=== PATIENT | female | born 2000 | race Caucasian/White ===

== ENCOUNTER 2018-05-13 12:53 | Emergency (ER) | payer OTHER ==
[~2018-05-13] VITALS: Ht 154.9 cm; Wt 80.7 kg
[~2018-05-13 12:53] MED LIST: BACTRIM DS TAB1 EACH PO; CIPRO500 MG PO; IBUPROFEN 800800 M1 PO; MOBIC7.5 MG PO; PHENAZOPYRIDIN200 M2 PO; ROBAXIN 750 MG750 M1 PO
[2018-05-13 13:39] LABS: URINE BILIRUBIN NEGATIVE (Negative); URINE BLOOD TRACE (Negative); URINE CLARITY CLEAR; URINE COLOR YELLOW; URINE GLUCOSE-RANDOM NEGATIVE (Negative); URINE KETONES NEGATIVE (Negative); URINE LEUKOCYTES-REFLEX 1+ (Negative); URINE NITRITE-REFLEX NEGATIVE (Negative); URINE PROTEIN NEGATIVE (Negative); URINE SPECIFIC GRAVITY >= 1.030 (1.005-1.030); URINE UROBILINOGEN 0.2 E.U./dl (0.2-1.0)
[2018-05-13 13:46] LABS: SQUAMOUS >10 Many /LPF (0-3)
[2018-05-13 13:47] LABS: BACTERIA-REFLEX >30 Many /HPF (None Seen); CASTS None Seen /LPF (None Seen); CRYSTALS None Seen /LPF (None Seen); MUCUS 0-3 Light strn/LPF (None Seen); URINE RBC None Seen /HPF (0-2)
[2018-05-13] MEDS ORDERED: MACROBID 100 M100 M1 PO (14:07)
[2018-05-13] MEDS ORDERED: DIFLUCAN150 M1 PO (14:16)
[2018-05-13] MEDS ORDERED: ZOFRAN ODT4 MG PO (14:16)
[2018-05-13 14:20] VITALS: BP 132/73
== END 2018-05-13 14:21 | disposition home or self-care (01) ==
LOC: M.ERS 12:53
PROVIDERS: Nurse Practitioner Family
DX: N39.0 Urinary tract infection, site not specified (principal); F17.210 Nicotine dependence, cigarettes, uncomplicated

== ENCOUNTER 2019-01-01 08:00 | Emergency (ER) | payer OTHER ==
[~2019-01-01] VITALS: Ht 157.5 cm; Wt 86.2 kg
[~2019-01-01 08:00] MED LIST changes: +DIFLUCAN150 M1 PO; +MACROBID 100 M100 M1 PO; +ZOFRAN ODT4 MG PO
[2019-01-01 09:10] VITALS: BP 135/78
== END 2019-01-01 09:10 | disposition home or self-care (01) ==
LOC: M.ERS 08:00
DX: J06.9 Acute upper respiratory infection, unspecified (principal); L30.9 Dermatitis, unspecified

== ENCOUNTER 2019-01-24 20:36 | Emergency (ER) | payer OTHER ==
[~2019-01-24] VITALS: Ht 157.5 cm; Wt 86.2 kg
[2019-01-24] MEDS ORDERED: NORCO 5-325 TA1 EAC1 PO (21:23)
[2019-01-24] MEDS ORDERED: IBUPROFEN 800800 M1 PO (21:23)
[2019-01-24] MEDS ORDERED: AMOXICILLIN 50500 MG PO (21:23)
[2019-01-24 21:39] VITALS: BP 140/72
[2019-01-28] MEDS ORDERED: CIPROFLOXIN HC2.5 M1 OTIC (13:34)
[2019-01-28] MEDS ORDERED: ACETAMINOPHEN-1 EAC1 PO (13:35)
== END 2019-01-24 21:39 | disposition home or self-care (01) ==
LOC: M.ERS 20:36
DX: H60.91 Unspecified otitis externa, right ear (principal)

== ENCOUNTER 2019-01-28 13:22 | Emergency (ER) | payer OTHER | END 2019-01-28 13:44 | disposition home or self-care (01) | LOC: M.ERS 13:22 | DX: H60.93 Unspecified otitis externa, bilateral (principal) ==

== ENCOUNTER 2019-03-19 15:38 | Emergency (ER) | payer OTHER ==
[~2019-03-19] VITALS: Ht 157.5 cm; Wt 86.2 kg
[~2019-03-19 15:38] MED LIST changes: +ACETAMINOPHEN-1 EAC1 PO; +AMOXICILLIN 50500 MG PO; +CIPROFLOXIN HC2.5 M1 OTIC; +NORCO 5-325 TA1 EAC1 PO
[2019-03-19 15:54] LABS: URINE BILIRUBIN NEGATIVE (Negative); URINE BLOOD 3+ (Negative); URINE CLARITY SL CLOUDY; URINE COLOR YELLOW; URINE GLUCOSE-RANDOM NEGATIVE (Negative); URINE KETONES NEGATIVE (Negative); URINE LEUKOCYTES-REFLEX NEGATIVE (Negative); URINE NITRITE-REFLEX NEGATIVE (Negative); URINE PROTEIN 3+ (Negative); URINE UROBILINOGEN 0.2 E.U./dl (0.2-1.0)
[2019-03-19 16:01] LABS: SQUAMOUS 0-3 Few /LPF (0-3); URINE RBC >20 Many /HPF (0-2); URINE WBC-REFLEX 0-5 Rare /HPF (0-5)
[2019-03-19 16:02] LABS: CASTS None Seen /LPF (None Seen); CRYSTALS None Seen /LPF (None Seen); MUCUS None Seen strn/LPF (None Seen)
[2019-03-19] MEDS ORDERED: DIFLUCAN200 MG PO (16:14)
[2019-03-19] MEDS ORDERED: BACTRIM DS TAB1 EACH PO (16:14)
[2019-03-19 16:22] VITALS: BP 130/82
== END 2019-03-19 16:23 | disposition home or self-care (01) ==
LOC: M.ERS 15:38
PROVIDERS: Family Medicine
DX: R30.0 Dysuria (principal); N39.0 Urinary tract infection, site not specified; F17.210 Nicotine dependence, cigarettes, uncomplicated

== ENCOUNTER 2019-06-28 15:45 | Emergency (ER) | payer OTHER ==
[~2019-06-28] VITALS: Ht 157.5 cm; Wt 81.7 kg
[~2019-06-28 15:45] MED LIST changes: +DIFLUCAN200 MG PO
[2019-06-28 16:01] LABS: URINE BILIRUBIN NEGATIVE (Negative); URINE BLOOD 1+ (Negative); URINE CLARITY CLEAR; URINE COLOR YELLOW; URINE GLUCOSE-RANDOM NEGATIVE (Negative); URINE KETONES NEGATIVE (Negative); URINE LEUKOCYTES-REFLEX NEGATIVE (Negative); URINE NITRITE-REFLEX POSITIVE (Negative); URINE PROTEIN NEGATIVE (Negative); URINE SPECIFIC GRAVITY 1.025 (1.005-1.030); URINE UROBILINOGEN 0.2 E.U./dl (0.2-1.0)
[2019-06-28 16:11] LABS: SQUAMOUS >10 Many /LPF (0-3)
[2019-06-28 16:12] LABS: URINE WBC-REFLEX 6-15 Few /HPF (0-5)
[2019-06-28 16:13] LABS: BACTERIA-REFLEX >30 Many /HPF (None Seen); CASTS None Seen /LPF (None Seen); CRYSTALS None Seen /LPF (None Seen); MUCUS >6 Heavy strn/LPF (None Seen); URINE RBC 3-10 Few /HPF (0-2)
[2019-06-28] MEDS ORDERED: KEFLEX500 M1 PO (16:20)
[2019-06-28] MEDS ORDERED: DIFLUCAN150 M1 PO (16:20)
[2019-06-28] MEDS ORDERED: PYRIDIUM100 M1 PO (16:20)
[2019-06-28] MEDS ORDERED: ONDANSETRON HCL4 M2 PO (16:30)
[2019-06-28 16:36] VITALS: BP 125/80
== END 2019-06-28 17:40 | disposition home or self-care (01) ==
LOC: M.ERS 15:45
PROVIDERS: Physician Assistant
DX: N39.0 Urinary tract infection, site not specified (principal)

== ENCOUNTER 2019-08-07 13:58 | Emergency (ER) | payer OTHER ==
[~2019-08-07] VITALS: Ht 160 cm; Wt 86.2 kg
[~2019-08-07 13:58] MED LIST changes: +KEFLEX500 M1 PO; +ONDANSETRON HCL4 M2 PO; +PYRIDIUM100 M1 PO
[2019-08-07] MEDS ORDERED: PEPTO-BISMOL262 M1 PO (14:11)
[2019-08-07] MEDS ORDERED: NON-ASPIRIN325 MG PO (14:12)
[2019-08-07 14:30] LABS: URINE BILIRUBIN NEGATIVE (Negative); URINE BLOOD TRACE (Negative); URINE CLARITY CLEAR; URINE COLOR YELLOW; URINE GLUCOSE-RANDOM NEGATIVE (Negative); URINE KETONES NEGATIVE (Negative); URINE LEUKOCYTES-REFLEX NEGATIVE (Negative); URINE NITRITE-REFLEX NEGATIVE (Negative); URINE PROTEIN NEGATIVE (Negative); URINE SPECIFIC GRAVITY 1.015 (1.005-1.030); URINE UROBILINOGEN 0.2 E.U./dl (0.2-1.0)
[2019-08-07 14:45] LABS: ABSOLUTE BASOPHILS 0.1 thou/uL (0.0-0.2); ABSOLUTE EOSINOPHILS 0.2 thou/uL (0.0-0.7); ABSOLUTE LYMPHOCYTES 2.3 thou/uL (0.8-5.3); ABSOLUTE MONOCYTES 0.7 thou/uL (0.0-1.2); BASOPHILS 0.6 %; EOSINOPHILS 2.4 %; HEMATOCRIT 42.3 % (37.0-47.0); HEMOGLOBIN 14.4 gm/dL (12.0-15.0); MCH 29.2 pg (26.0-34.0); MCHC 33.9 g/dL (28.0-37.0); MCV 86.1 fL (80.0-100.0); MPV 8.4 fl. (7.2-11.1); NUCLEATED RBCS 0 /100WBC; PLATELET COUNT* 422 thou/uL (150-400); RBC 4.92 mil/uL (4.20-5.00); RDW-CV 13.4 % (10.5-14.5); WBC 8.2 thou/uL (4.0-11.0)
[2019-08-07 14:56] LABS: CALCIUM 9.2 mg/dL (8.5-10.1); CREATININE 0.9 mg/dL (0.6-1.3); POTASSIUM 3.9 mmol/L (3.5-5.1)
[2019-08-07 14:58] LABS: INFLUENZA A ANTIGEN Negative (Negative); INFLUENZA B ANTIGEN Negative (Negative)
[2019-08-07 15:06] LABS: ALBUMIN 3.9 g/dL (3.4-5.0); TOTAL BILIRUBIN 0.3 mg/dL (<0.1-1.0); TOTAL PROTEIN 8.9 g/dL (6.4-8.2)
[2019-08-07] MEDS ORDERED: BENTYL 20 MG TA20 M1 PO (15:06)
[2019-08-07] MEDS ORDERED: ONDANSETRON HCL4 M2 PO (15:06)
[2019-08-07 16:18] VITALS: BP 136/85
== END 2019-08-07 16:18 | disposition home or self-care (01) ==
LOC: M.ERS 13:58
PROVIDERS: Nurse Practitioner Family
DX: K52.9 Noninfective gastroenteritis and colitis, unspecified (principal); I10 Essential (primary) hypertension; F17.200 Nicotine dependence, unspecified, uncomplicated

== ENCOUNTER 2019-08-11 01:21 | Emergency (ER) | payer OTHER ==
[~2019-08-11] VITALS: Ht 160 cm; Wt 86.2 kg
[~2019-08-11 01:21] MED LIST changes: +BENTYL 20 MG TA20 M1 PO; +NON-ASPIRIN325 MG PO; +PEPTO-BISMOL262 M1 PO
[2019-08-11 03:15] LABS: ABSOLUTE BASOPHILS 0.1 thou/uL (0.0-0.2); ABSOLUTE EOSINOPHILS 0.2 thou/uL (0.0-0.7); ABSOLUTE LYMPHOCYTES 3.2 thou/uL (0.8-5.3); ABSOLUTE MONOCYTES 0.9 thou/uL (0.0-1.2); ABSOLUTE NEUTROPHILS 9.2 thou/uL (1.6-8.1); BASOPHILS 0.7 %; EOSINOPHILS 1.2 %; HEMATOCRIT 37.6 % (37.0-47.0); HEMOGLOBIN 12.6 gm/dL (12.0-15.0); LYMPHOCYTES 23.9 %; MCH 28.7 pg (26.0-34.0); MCHC 33.5 g/dL (28.0-37.0); MCV 85.8 fL (80.0-100.0); MONOCYTES 6.4 %; MPV 8.7 fl. (7.2-11.1); NUCLEATED RBCS 0 /100WBC; PLATELET COUNT* 412 thou/uL (150-400); POLYS 67.8 %; RBC 4.39 mil/uL (4.20-5.00); RDW-CV 13.7 % (10.5-14.5); WBC 13.6 thou/uL (4.0-11.0)
[2019-08-11 03:34] LABS: ALBUMIN 3.8 g/dL (3.4-5.0); CALCIUM 8.5 mg/dL (8.5-10.1); CREATININE 0.8 mg/dL (0.6-1.3); TOTAL BILIRUBIN 0.3 mg/dL (<0.1-1.0); TOTAL PROTEIN 8.2 g/dL (6.4-8.2)
[2019-08-11 03:45] LABS: URINE BILIRUBIN NEGATIVE (Negative); URINE BLOOD TRACE (Negative); URINE CLARITY CLEAR; URINE COLOR YELLOW; URINE GLUCOSE-RANDOM NEGATIVE (Negative); URINE KETONES NEGATIVE (Negative); URINE LEUKOCYTES-REFLEX NEGATIVE (Negative); URINE NITRITE-REFLEX NEGATIVE (Negative); URINE PROTEIN NEGATIVE (Negative); URINE SPECIFIC GRAVITY >= 1.030 (1.005-1.030); URINE UROBILINOGEN 0.2 E.U./dl (0.2-1.0)
[2019-08-11 04:05] LABS: POTASSIUM 3.3 mmol/L (3.5-5.1)
[2019-08-11] MEDS ORDERED: CIPROFLOXACIN500 M1 PO (05:19)
[2019-08-11] MEDS ORDERED: HYDROCODON-ACE1 EAC7 PO (05:19)
[2019-08-11] MEDS ORDERED: FLAGYL 250 MG250 MG PO (05:19)
[2019-08-11 05:33] VITALS: BP 140/73
== END 2019-08-11 05:33 | disposition home or self-care (01) ==
LOC: M.ERS 01:21
PROVIDERS: Personal Emergency Response Attendant
DX: K52.9 Noninfective gastroenteritis and colitis, unspecified (principal); I10 Essential (primary) hypertension; Z87.440 Personal history of urinary (tract) infections

== ENCOUNTER 2019-11-14 18:45 | Emergency (ER) | payer OTHER ==
[~2019-11-14] VITALS: Ht 157.5 cm; Wt 90.7 kg
[~2019-11-14 18:45] MED LIST changes: +CIPROFLOXACIN500 M1 PO; +FLAGYL 250 MG250 MG PO; +HYDROCODON-ACE1 EAC7 PO
[2019-11-14] MEDS ORDERED: IBUPROFEN 800800 M1 PO (18:57)
[2019-11-14 19:35] LABS: URINE BILIRUBIN NEGATIVE (Negative); URINE BLOOD NEGATIVE (Negative); URINE CLARITY SL CLOUDY; URINE COLOR YELLOW; URINE GLUCOSE-RANDOM NEGATIVE (Negative); URINE KETONES NEGATIVE (Negative); URINE LEUKOCYTES-REFLEX TRACE (Negative); URINE PROTEIN NEGATIVE (Negative); URINE SPECIFIC GRAVITY 1.025 (1.005-1.030); URINE UROBILINOGEN 0.2 E.U./dl (0.2-1.0)
[2019-11-14 19:37] LABS: ABSOLUTE BASOPHILS 0.1 thou/uL (0.0-0.2); ABSOLUTE EOSINOPHILS 0.3 thou/uL (0.0-0.7); ABSOLUTE LYMPHOCYTES 2.3 thou/uL (0.8-5.3); ABSOLUTE MONOCYTES 0.6 thou/uL (0.0-1.2); ABSOLUTE NEUTROPHILS 5.2 thou/uL (1.6-8.1); BASOPHILS 1.1 %; EOSINOPHILS 3.5 %; LYMPHOCYTES 27.2 %; MCH 29.2 pg (26.0-34.0); MCHC 33.3 g/dL (28.0-37.0); MCV 87.7 fL (80.0-100.0); MONOCYTES 6.9 %; MPV 8.4 fl. (7.2-11.1); NUCLEATED RBCS 0 /100WBC; PLATELET COUNT* 415 thou/uL (150-400); POLYS 61.3 %; RBC 4.45 mil/uL (4.20-5.00); RDW-CV 13.5 % (10.5-14.5); WBC 8.5 thou/uL (4.0-11.0)
[2019-11-14 19:43] LABS: URINE NITRITE-REFLEX POSITIVE (Negative)
[2019-11-14 19:44] LABS: CALCIUM 8.7 mg/dL (8.5-10.1); CREATININE 0.9 mg/dL (0.6-1.3); POTASSIUM 3.8 mmol/L (3.5-5.1)
[2019-11-14 19:49] LABS: ALBUMIN 3.6 g/dL (3.4-5.0); TOTAL BILIRUBIN 0.1 mg/dL (<0.1-1.0); TOTAL PROTEIN 7.8 g/dL (6.4-8.2)
[2019-11-14 19:51] LABS: BACTERIA-REFLEX >30 Many /HPF (None Seen); CASTS None Seen /LPF (None Seen); CRYSTALS None Seen /LPF (None Seen); SQUAMOUS >10 Many /LPF (0-3); URINE RBC 0-2 Rare /HPF (0-2)
[2019-11-14] MEDS ORDERED: ONDANSETRON HCL4 M2 PO (20:35)
[2019-11-14] MEDS ORDERED: AUGMENTIN 875-1 EACH PO (20:35)
[2019-11-14] MEDS ORDERED: BENTYL 20 MG TA20 M1 PO (20:35)
[2019-11-14] MEDS ORDERED: DIFLUCAN150 M1 PO (20:44)
[2019-11-14 20:47] VITALS: BP 132/72
== END 2019-11-14 20:48 | disposition home or self-care (01) ==
LOC: M.ERS 18:45
PROVIDERS: Nurse Practitioner Family
DX: K52.9 Noninfective gastroenteritis and colitis, unspecified (principal); N39.0 Urinary tract infection, site not specified; I10 Essential (primary) hypertension; F17.210 Nicotine dependence, cigarettes, uncomplicated; Z87.440 Personal history of urinary (tract) infections; Z87.898 Personal history of other specified conditions

== ENCOUNTER 2020-01-22 12:20 | Emergency (ER) | payer OTHER ==
[~2020-01-22] VITALS: Ht 157.5 cm; Wt 86.2 kg
[~2020-01-22 12:20] MED LIST changes: +AUGMENTIN 875-1 EACH PO
[2020-01-22 12:56] LABS: URINE BILIRUBIN NEGATIVE (Negative); URINE BLOOD 2+ (Negative); URINE CLARITY CLEAR; URINE COLOR YELLOW; URINE GLUCOSE-RANDOM NEGATIVE (Negative); URINE KETONES 1+ (Negative); URINE LEUKOCYTES-REFLEX NEGATIVE (Negative); URINE NITRITE-REFLEX NEGATIVE (Negative); URINE PROTEIN NEGATIVE (Negative); URINE SPECIFIC GRAVITY >= 1.030 (1.005-1.030); URINE UROBILINOGEN 0.2 E.U./dl (0.2-1.0)
[2020-01-22 13:06] LABS: CASTS None Seen /LPF (None Seen); CRYSTALS None Seen /LPF (None Seen); MUCUS 4-6 Moderate strn/LPF (None Seen); SQUAMOUS 4-10 Moderate /LPF (0-3); URINE RBC 3-10 Few /HPF (0-2); URINE WBC-REFLEX 0-5 Rare /HPF (0-5)
[2020-01-22] MEDS ORDERED: PYRIDIUM100 M1 PO (14:07)
[2020-01-22] MEDS ORDERED: TYLENOL WITH CO1 TA1 PO (14:07)
[2020-01-22] MEDS ORDERED: MACROBID 100 M100 MG PO (14:07)
[2020-01-22 14:48] VITALS: BP 133/83
== END 2020-01-22 14:48 | disposition home or self-care (01) ==
LOC: M.ERS 12:20
PROVIDERS: Physician Assistant
DX: R31.9 Hematuria, unspecified (principal); R30.0 Dysuria; R35.0 Frequency of micturition; I10 Essential (primary) hypertension; F17.210 Nicotine dependence, cigarettes, uncomplicated; Z87.440 Personal history of urinary (tract) infections

== ENCOUNTER 2020-01-23 19:18 | Emergency (ER) | payer OTHER ==
[~2020-01-23] VITALS: Ht 160 cm; Wt 88.5 kg
[~2020-01-23 19:18] MED LIST changes: +MACROBID 100 M100 MG PO; +TYLENOL WITH CO1 TA1 PO
[2020-01-23 20:48] VITALS: BP 136/74
[2020-01-24] MEDS ORDERED: HYDROXYZINE PAM25 M1 PO (15:49)
[2020-01-24] MEDS ORDERED: PROPRANOLOL 1010 M1 PO (15:49)
== END 2020-01-23 20:49 | disposition home or self-care (01) ==
LOC: M.ERS 19:18
DX: F41.9 Anxiety disorder, unspecified (principal); I10 Essential (primary) hypertension; Z87.440 Personal history of urinary (tract) infections

== ENCOUNTER 2020-01-24 14:12 | Emergency (ER) | payer OTHER ==
[~2020-01-24] VITALS: Ht 160 cm; Wt 88.5 kg
[2020-01-24 15:09] LABS: URINE BILIRUBIN NEGATIVE (Negative); URINE BLOOD 1+ (Negative); URINE CLARITY SL CLOUDY; URINE COLOR YELLOW; URINE GLUCOSE-RANDOM NEGATIVE (Negative); URINE KETONES NEGATIVE (Negative); URINE LEUKOCYTES-REFLEX TRACE (Negative); URINE NITRITE-REFLEX NEGATIVE (Negative); URINE PROTEIN NEGATIVE (Negative); URINE UROBILINOGEN 0.2 E.U./dl (0.2-1.0)
[2020-01-24 15:16] LABS: AMP/METHAMP Negative (Negative); BACTERIA-REFLEX >30 Many /HPF (None Seen); BARBITURATES Negative (Negative); BENZODIAZEPINES POSITIVE (Negative); CASTS None Seen /LPF (None Seen); COCAINE Negative (Negative); CRYSTALS None Seen /LPF (None Seen); METHADONE Negative (Negative); MUCUS 4-6 Moderate strn/LPF (None Seen); OPIATES POSITIVE (Negative); PCP Negative (Negative); SQUAMOUS >10 Many /LPF (0-3); THC POSITIVE (Negative); URINE RBC 0-2 Rare /HPF (0-2); URINE WBC-REFLEX 0-5 Rare /HPF (0-5)
[2020-01-24 15:16] LABS: ABSOLUTE LYMPHOCYTES 1.2 thou/uL (0.8-5.3); ABSOLUTE MONOCYTES 0.6 thou/uL (0.0-1.2); ABSOLUTE NEUTROPHILS 9.7 thou/uL (1.6-8.1); BASOPHILS 0.4 %; EOSINOPHILS 0.2 %; HEMATOCRIT 39.6 % (37.0-47.0); HEMOGLOBIN 13.3 gm/dL (12.0-15.0); LYMPHOCYTES 10.3 %; MCH 29.4 pg (26.0-34.0); MCHC 33.5 g/dL (28.0-37.0); MCV 87.9 fL (80.0-100.0); MONOCYTES 5.1 %; MPV 8.4 fl. (7.2-11.1); NUCLEATED RBCS 0 /100WBC; PLATELET COUNT* 450 thou/uL (150-400); RBC 4.51 mil/uL (4.20-5.00); RDW-CV 13.5 % (10.5-14.5); WBC 11.6 thou/uL (4.0-11.0)
[2020-01-24 15:23] LABS: CALCIUM 8.8 mg/dL (8.5-10.1); CREATININE 0.9 mg/dL (0.6-1.3)
[2020-01-24 15:28] LABS: ALBUMIN 3.6 g/dL (3.4-5.0); TOTAL BILIRUBIN 0.2 mg/dL (<0.1-1.0); TOTAL PROTEIN 8.7 g/dL (6.4-8.2)
[2020-01-24] MEDS ORDERED: HYDROXYZINE PAM25 M1 PO (15:49)
[2020-01-24] MEDS ORDERED: PROPRANOLOL 1010 M1 PO (15:49)
[2020-01-24 16:25] VITALS: BP 155/74
== END 2020-01-24 16:26 | disposition home or self-care (01) ==
LOC: M.ERS 14:12
PROVIDERS: Personal Emergency Response Attendant
DX: F41.0 Panic disorder [episodic paroxysmal anxiety] (principal); I10 Essential (primary) hypertension; F41.9 Anxiety disorder, unspecified; Z87.440 Personal history of urinary (tract) infections

== ENCOUNTER 2020-12-27 17:45 | Emergency (ER) | payer OTHER ==
[~2020-12-27] VITALS: Ht 157.5 cm; Wt 90.7 kg
[~2020-12-27 17:45] MED LIST changes: +HYDROXYZINE PAM25 M1 PO; +PROPRANOLOL 1010 M1 PO
[2020-12-27] MEDS ORDERED: SERTRALINE HCL100 MG PO (17:58)
[2020-12-27 18:01] LABS: URINE BILIRUBIN NEGATIVE (Negative); URINE BLOOD TRACE (Negative); URINE CLARITY CLEAR; URINE COLOR YELLOW; URINE GLUCOSE-RANDOM NEGATIVE (Negative); URINE KETONES TRACE (Negative); URINE LEUKOCYTES-REFLEX TRACE (Negative); URINE NITRITE-REFLEX POSITIVE (Negative); URINE PROTEIN NEGATIVE (Negative); URINE SPECIFIC GRAVITY 1.025 (1.005-1.030); URINE UROBILINOGEN 0.2 E.U./dl (0.2-1.0)
[2020-12-27 18:10] LABS: BACTERIA-REFLEX >30 Many /HPF (None Seen); MUCUS 4-6 Moderate strn/LPF (None Seen); SQUAMOUS >10 Many /LPF (0-3)
[2020-12-27 18:11] LABS: URINE RBC 0-2 Rare /HPF (0-2); URINE WBC-REFLEX 6-15 Few /HPF (0-5)
[2020-12-27 18:12] LABS: CASTS None Seen /LPF (None Seen); CRYSTALS None Seen /LPF (None Seen)
[2020-12-27 18:27] LABS: ABSOLUTE BASOPHILS 0.2 thou/uL (0.0-0.2); ABSOLUTE EOSINOPHILS 0.4 thou/uL (0.0-0.7); ABSOLUTE LYMPHOCYTES 2.8 thou/uL (0.8-5.3); ABSOLUTE MONOCYTES 0.9 thou/uL (0.0-1.2); ABSOLUTE NEUTROPHILS 8.7 thou/uL (1.6-8.1); BASOPHILS 1.4 %; EOSINOPHILS 2.8 %; HEMATOCRIT 37.4 % (37.0-47.0); HEMOGLOBIN 12.4 gm/dL (12.0-15.0); LYMPHOCYTES 21.5 %; MCH 28.4 pg (26.0-34.0); MCHC 33.1 g/dL (28.0-37.0); MCV 85.9 fL (80.0-100.0); MONOCYTES 7.2 %; MPV 8.6 fl. (7.2-11.1); NUCLEATED RBCS 0 /100WBC; PLATELET COUNT* 436 thou/uL (150-400); POLYS 67.1 %; RBC 4.36 mil/uL (4.20-5.00); RDW-CV 14.2 % (10.5-14.5); WBC 12.9 thou/uL (4.0-11.0)
[2020-12-27 18:33] LABS: CALCIUM 9.1 mg/dL (8.5-10.1); CREATININE 0.7 mg/dL (0.6-1.3); POTASSIUM 3.6 mmol/L (3.5-5.1)
[2020-12-27] MEDS ORDERED: CEPHALEXIN500 MG PO (19:19)
[2020-12-27 19:36] VITALS: BP 120/70
== END 2020-12-27 19:36 | disposition home or self-care (01) ==
LOC: M.ERS 17:45
PROVIDERS: Nurse Practitioner Psychiatric/Mental Health
DX: O23.41 Unspecified infection of urinary tract in pregnancy, first trimester (principal); O16.1 Unspecified maternal hypertension, first trimester; Z3A.08 8 weeks gestation of pregnancy

== ENCOUNTER 2021-01-10 22:53 | Emergency (ER) | payer OTHER ==
[~2021-01-10] VITALS: Ht 160 cm; Wt 90.7 kg
[~2021-01-10 22:53] MED LIST changes: +CEPHALEXIN500 MG PO; +SERTRALINE HCL100 MG PO
[2021-01-10 23:31] LABS: HEMOGLOBIN 12.9 gm/dL (12.0-15.0); MCHC 34.5 g/dL (28.0-37.0); RBC 4.39 mil/uL (4.20-5.00)
[2021-01-10 23:33] LABS: HEMATOCRIT 37.3 % (37.0-47.0); MCH 29.3 pg (26.0-34.0); MCV 85.1 fL (80.0-100.0); MPV 8.3 fl. (7.2-11.1); NUCLEATED RBCS 0 /100WBC; PLATELET COUNT* 448 thou/uL (150-400); RDW-CV 13.6 % (10.5-14.5); WBC 14.7 thou/uL (4.0-11.0)
[2021-01-10 23:41] LABS: CALCIUM 9.2 mg/dL (8.5-10.1); CREATININE 0.6 mg/dL (0.6-1.3); POTASSIUM 3.3 mmol/L (3.5-5.1)
[2021-01-10 23:45] LABS: ALBUMIN 3.9 g/dL (3.4-5.0); TOTAL BILIRUBIN 0.5 mg/dL (<0.1-1.0); TOTAL PROTEIN 8.5 g/dL (6.4-8.2)
[2021-01-11 01:07] LABS: ABSOLUTE LYMPHOCYTES 0.4 thou/uL (0.8-5.3); ABSOLUTE NEUTROPHILS 13.2 thou/uL (1.6-8.1)
[2021-01-11 01:08] LABS: PLATELET ESTIMATE INCREASED
[2021-01-11 01:56] LABS: URINE BLOOD NEGATIVE (Negative); URINE CLARITY CLEAR; URINE COLOR YELLOW; URINE GLUCOSE-RANDOM NEGATIVE (Negative); URINE KETONES 3+ (Negative); URINE LEUKOCYTES-REFLEX NEGATIVE (Negative); URINE NITRITE-REFLEX NEGATIVE (Negative); URINE PROTEIN TRACE (Negative); URINE SPECIFIC GRAVITY >= 1.030 (1.005-1.030); URINE UROBILINOGEN 0.2 E.U./dl (0.2-1.0)
[2021-01-11 01:57] LABS: URINE BILIRUBIN 1+ (Negative)
[2021-01-11 02:00] LABS: ICTOTEST (BILI CONFIRMATORY) Positive (Negative)
[2021-01-11 02:01] LABS: ACETEST (KETONE CONFIRMATORY) Large (Negative)
[2021-01-11] MEDS ORDERED: ZOFRAN ODT4 MG PO (02:42)
[2021-01-11 02:55] VITALS: BP 112/68
== END 2021-01-11 02:55 | disposition home or self-care (01) ==
LOC: M.ERS 22:53
PROVIDERS: Emergency Medicine
DX: O21.0 Mild hyperemesis gravidarum (principal); Z3A.01 Less than 8 weeks gestation of pregnancy; Z79.899 Other long term (current) drug therapy

== ENCOUNTER 2021-08-29 23:10 | Emergency (ER) | payer MEDICAID ==
[~2021-08-29] VITALS: Ht 160 cm; Wt 86.2 kg
[2021-08-29 23:38] LABS: URINE BILIRUBIN NEGATIVE (Negative); URINE BLOOD 2+ (Negative); URINE CLARITY CLEAR; URINE COLOR YELLOW; URINE GLUCOSE-RANDOM NEGATIVE (Negative); URINE KETONES NEGATIVE (Negative); URINE LEUKOCYTES-REFLEX NEGATIVE (Negative); URINE NITRITE-REFLEX NEGATIVE (Negative); URINE PROTEIN NEGATIVE (Negative); URINE SPECIFIC GRAVITY 1.025 (1.005-1.030); URINE UROBILINOGEN 0.2 E.U./dl (0.2-1.0)
[2021-08-30 00:09] LABS: CASTS None Seen /LPF (None Seen); SQUAMOUS 4-10 Moderate /LPF (0-3); URINE WBC-REFLEX 0-5 Rare /HPF (0-5)
[2021-08-30 00:10] LABS: BACTERIA-REFLEX None Seen /HPF (None Seen); CRYSTALS None Seen /LPF (None Seen)
[2021-08-30 00:35] LABS: ABSOLUTE BASOPHILS 0.1 thou/uL (0.0-0.2); ABSOLUTE EOSINOPHILS 0.2 thou/uL (0.0-0.7); ABSOLUTE LYMPHOCYTES 1.5 thou/uL (0.8-5.3); ABSOLUTE MONOCYTES 0.7 thou/uL (0.0-1.2); ABSOLUTE NEUTROPHILS 6.8 thou/uL (1.6-8.1); BASOPHILS 0.6 %; EOSINOPHILS 1.8 %; HEMATOCRIT 35.6 % (37.0-47.0); HEMOGLOBIN 11.5 gm/dL (12.0-15.0); LYMPHOCYTES 16.5 %; MCH 27.3 pg (26.0-34.0); MCHC 32.2 g/dL (28.0-37.0); MCV 84.7 fL (80.0-100.0); MPV 8.2 fl. (7.2-11.1); NUCLEATED RBCS 0 /100WBC; PLATELET COUNT* 389 thou/uL (150-400); POLYS 73.1 %; RDW-CV 14.1 % (10.5-14.5); WBC 9.3 thou/uL (4.0-11.0)
[2021-08-30 00:41] LABS: CALCIUM 8.8 mg/dL (8.5-10.1); CREATININE 0.9 mg/dL (0.6-1.3); POTASSIUM 3.9 mmol/L (3.5-5.1)
[2021-08-30 03:04] VITALS: BP 143/87
[2021-08-30 03:09] LABS: ALBUMIN 3.6 g/dL (3.4-5.0); DIRECT BILIRUBIN 0.1 mg/dL (<0.1-0.3)
[2021-08-30 03:25] LABS: TOTAL BILIRUBIN 0.6 mg/dL (<0.1-1.0); TOTAL PROTEIN 7.3 g/dL (6.4-8.2)
== END 2021-08-30 03:04 | disposition home or self-care (01) ==
LOC: M.ERS 23:10
PROVIDERS: Emergency Medicine; Student in an Organized Health Care Education/Training Program
DX: O90.89 Other complications of the puerperium, not elsewhere classified (principal); R10.13 Epigastric pain; I10 Essential (primary) hypertension; F41.9 Anxiety disorder, unspecified; Z79.899 Other long term (current) drug therapy

== ENCOUNTER 2021-08-30 05:37 | Inpatient (IN) | payer OTHER, MEDICAID ==
[~2021-08-30] VITALS: Ht 160 cm; Wt 86.2 kg
--- NOTE | ~2021-08-30 | OP ---
[address] [address] OPERATIVE REPORT Name: JOANN AVITIA Room: [address]#: [id number] Admission: 08/30/21 Attend Phys: Esha Mendiola MD Discharge: 09/02/21 Date of : 89 Report #: [id number] THIS REPORT FOR: cc: MEG - No family physician/PCP MEG - No family physician/PCP Abundio Song MD ~ DATE OF SURGERY: 08/31/2021 PREOPERATIVE DIAGNOSIS: Gallstone pancreatitis. POSTOPERATIVE DIAGNOSIS: Gallstone pancreatitis. OPERATIVE PROCEDURE DONE: Laparoscopic cholecystectomy and intraoperative cholangiogram. OPERATING SURGEON: Abundio Song MD. INDICATIONS FOR THE PROCEDURE: The patient is a 21-year-old female who presented with complaints of right upper quadrant pain and upper abdominal pain. Laboratory data showed features of gallstones and elevated lipase more than 3000. The patient was advised laparoscopic cholecystectomy. The patient showed understanding and agreed to proceed. PROCEDURE IN DETAIL: After explaining to the patient in detail and informed consent was obtained, the patient was identified in the preoperative holding area. The patient was transferred to the operating room and was placed in supine position. Sequential compression devices were placed for DVT prophylaxis. Preoperative antibiotics were given. After induction of anesthesia, the abdomen was prepped and draped in a sterile fashion. Through a right upper quadrant 1 cm incision and using Optiview technique, peritoneal cavity was entered and pneumoperitoneum was created. Thereafter, under direct vision, another 5 mm trocar was placed through a supraumbilical incision, another 5 mm trocar was placed in the epigastrium and one in the right lateral subcostal region. On initial inspection, the gallbladder appeared slightly inflamed. The gallbladder was retracted and the peritoneal reflections along the neck of the gallbladder was gently dissected off. Cystic duct was identified and was isolated from surrounding structures. Cystic artery was identified and isolated from the surrounding structures and the critical view was obtained. Cystic duct was then double clipped distally and a ductotomy was made. Cholangiogram catheter was then inserted and a cholangiogram was performed. There was no filling defect that was noted. There was free flow of contrast into the duodenum and the biliary radicles filled normally. The cystic duct was then double clipped proximally and was then divided. Cystic artery also was then divided in a similar fashion. The gallbladder was gently dissected off the liver bed using hook electrocautery. There was a small posterior branch that also had to be clipped and cauterized[place] [address] OPERATIVE REPORT Name: ADOREJOANN MUNROE Room: [address] [place] [facility]#: [id number] Admission: 08/30/21 Attend Phys: Esha Mendiola MD Discharge: 09/02/21 Date of : [birth year] Report #: [id number] finally removed and was retrieved using an EndoCatch through the lateral most incision. Incisions were then closed with 4-0 Monocryl. The lateral incision was closed with 0 Vicryl for the fascia. Skin was closed with 4-0 Monocryl. Dermabond was applied. The patient was stable at the end of the procedure. The patient was awoken from anesthesia and was transferred to the recovery room in stable condition. Estimated blood loss was minimal. ESTIMATED BLOOD LOSS: Approximately 50 mL. CONDITION: The patient is stable. FLUIDS GIVEN: Per anesthesia notes. SPECIMEN SENT: Gallbladder. COMPLICATIONS: None. ANESTHESIA: General anesthesia. By: [id number] Gordy Song MD /maria m
[2021-08-30 05:45] VITALS: BP 157/97
[2021-08-30 08:37] VITALS: BP 135/73
[2021-08-30 10:30] LABS: CHOLESTEROL 217 mg/dL (<200); HDL CHOLESTEROL 45 mg/dL (>40); LDL CHOLESTEROL 155 mg/dL (<100); LIPASE 3996 U/L (73-393); TC:HDL 4.8 Ratio (Not establshd); TRIGLYCERIDE 89 mg/dL (<150); VLDL 18 mg/dL (<40)
[2021-08-30 10:33] LABS: SERUM ASSESSMENT CL
[2021-08-30 10:35] VITALS: BP 114/57
[2021-08-30 23:52] VITALS: BP 122/58
[2021-08-31] VITALS: BP 129/77
[2021-08-31 04:15] LABS: ABSOLUTE EOSINOPHILS 0.2 thou/uL (0.0-0.7); ABSOLUTE LYMPHOCYTES 1.4 thou/uL (0.8-5.3); ABSOLUTE MONOCYTES 0.7 thou/uL (0.0-1.2); ABSOLUTE NEUTROPHILS 5.6 thou/uL (1.6-8.1); BASOPHILS 0.3 %; EOSINOPHILS 2.2 %; HEMATOCRIT 29.8 % (37.0-47.0); HEMOGLOBIN 9.8 gm/dL (12.0-15.0); LYMPHOCYTES 17.4 %; MCH 27.7 pg (26.0-34.0); MCHC 32.8 g/dL (28.0-37.0); MCV 84.4 fL (80.0-100.0); MONOCYTES 8.8 %; MPV 8.2 fl. (7.2-11.1); NUCLEATED RBCS 0 /100WBC; POLYS 71.3 %; RBC 3.53 mil/uL (4.20-5.00); RDW-CV 13.6 % (10.5-14.5); WBC 7.8 thou/uL (4.0-11.0)
[2021-08-31 04:28] LABS: PLATELET COUNT* 297 thou/uL (150-400)
[2021-08-31 04:31] LABS: ALBUMIN 2.8 g/dL (3.4-5.0); CREATININE 0.9 mg/dL (0.6-1.3); MAGNESIUM 1.8 mg/dL (1.8-2.4); POTASSIUM 3.3 mmol/L (3.5-5.1); TOTAL BILIRUBIN 0.5 mg/dL (<0.1-1.0); TOTAL PROTEIN 6.5 g/dL (6.4-8.2)
[2021-08-31 06:21] VITALS: BP 129/77
[2021-08-31 08:10] LABS: HEPATITIS B SURFACE AG Negative (Negative)
[2021-08-31 10:52] VITALS: BP 135/70
[2021-08-31 16:21] VITALS: BP 145/72
[2021-08-31 20:00] VITALS: BP 140/78
[2021-09-01 00:12] VITALS: BP 146/81
[2021-09-01 03:39] LABS: HEMATOCRIT 30.4 % (37.0-47.0); MCH 27.4 pg (26.0-34.0); MCHC 32.8 g/dL (28.0-37.0); MCV 83.6 fL (80.0-100.0); MPV 7.6 fl. (7.2-11.1); RBC 3.64 mil/uL (4.20-5.00); RDW-CV 13.7 % (10.5-14.5); WBC 8.3 thou/uL (4.0-11.0)
[2021-09-01 04:11] LABS: ALBUMIN 2.8 g/dL (3.4-5.0); CALCIUM 8.7 mg/dL (8.5-10.1); CREATININE 0.9 mg/dL (0.6-1.3); POTASSIUM 4.1 mmol/L (3.5-5.1); TOTAL BILIRUBIN 0.4 mg/dL (<0.1-1.0); TOTAL PROTEIN 6.9 g/dL (6.4-8.2)
[2021-09-01 08:00] VITALS: BP 136/71
[2021-09-01] MEDS ORDERED: HYDROCODON-ACE1 EAC7 PO (11:06)
[2021-09-01 16:14] VITALS: BP 129/72
[2021-09-01 20:30] VITALS: BP 158/80
[2021-09-02 04:00] VITALS: BP 143/82
[2021-09-02 04:27] LABS: HEMOGLOBIN 9.3 gm/dL (12.0-15.0); MCHC 33.2 g/dL (28.0-37.0); MCV 84.4 fL (80.0-100.0); MPV 8.1 fl. (7.2-11.1); RBC 3.32 mil/uL (4.20-5.00)
[2021-09-02 04:39] LABS: ALBUMIN 2.7 g/dL (3.4-5.0); MAGNESIUM 1.6 mg/dL (1.8-2.4); POTASSIUM 3.4 mmol/L (3.5-5.1); TOTAL BILIRUBIN 0.3 mg/dL (<0.1-1.0); TOTAL PROTEIN 6.6 g/dL (6.4-8.2)
[2021-09-02 09:00] VITALS: BP 139/86
--- NOTE | 2021-09-02 13:08 | PATH ---
[address] [address] PATHOLOGY RPT PROCEDURE Name: ADOREJOANNCHUY MUNROE Room: [address] [place] ..#: [id number] Admission: 08/30/21 Date of : [birth year] Discharge: Report #: [id number] Path Case #: [id number] [facility] Accession Number: [id number] . 01 Material submitted: . gallbladder - GALLBLADDER . 01 Clinical history: . LAPAROSCOPIC CHOLECYSTECTOMY WITH GRAMS GALLSTONE PANCREATITIS . 02 Diagnosis: Gallbladder: - Chronic cholecystitis with cholesterolosis including cholesterol polyps and cholelithiasis. (DALIA/db; 09/02/2021) LBQ 09/02/2021 1207 Local . 02 Electronically signed: . Moustapha Olvera MD, Pathologist NPI- [id number] . 01 Gross description: . Fixative: Formalin Labeled: Gallbladder Specimen received: Intact Dimensions: 9.0 x 3.3 x 2.5 cm Lymph node: Not identified Serosa: Ingram-gong and dusky Calculi: Multiple yellow calculi (1.0 x 0.9 x 0.1 cm in aggregate) Mucosa: Green and velvety with moderate pitts stippling Average wall thickness: 0.2 cm Abnormalities: 3 pitts mucosal polyps (ranging from 0.2 x 0.1 x 0.1 cm to 0.3 x 0.2 x 0.2 cm), each of which appears confined to the mucosa. A1: Gallbladder, represented to include the entirety of the mucosal polyps submitted intact ([facility] [place]; 09/01/2021) DKA/DKA 09/01/2021 1214 Local . 02 Pathologist provided ICD-10: K80.10, K82.4 . 02 CPT . 400278 Specimen Comment: A courtesy copy of this report has been sent to [phone] Specimen Comment: [phone] Specimen Comment: Report sent to / DR MCKEON Performed at: 01 [place] [address] PATHOLOGY RPT PROCEDURE Name: JOANN AVITIA Room: [address] [place] ..#: [id number] Admission: 08/30/21 Date of : [birth year] Discharge: Report #: [id number] Path Case #: [id number] [address], [place], [place] [id number] MD Ricky Quintero MD Phone: [phone] Performed at: 02 [facility] [address], [place], [place] [id number] MD Moustapha Olvera MD Phone: [phone]
[2021-09-02 13:30] VITALS: BP 139/86
[2021-09-02] MEDS ORDERED: ZOFRAN ODT4 MG PO (13:41)
== END 2021-09-02 13:45 | disposition home or self-care (01) | DRG 419 ==
LOC: M.ERS 05:37 → M.TBA-ER 05:45 → M.ORTHSURG 09:40 → M.TBA-ER 09:40 → M.ORTHSURG 23:55
PROVIDERS: Physician Assistant Medical; Surgery; ADMIT Internal Medicine; ATTEND Internal Medicine
PROC: BF101ZZ Fluoroscopy of Bile Ducts using Low Osmolar Contrast (ICD-10-PCS; principal; 2021-08-31)
PROC: 0FT44ZZ Resection of Gallbladder, Percutaneous Endoscopic Approach (ICD-10-PCS; principal; 2021-08-31)
DX: K85.10 Biliary acute pancreatitis without necrosis or infection (principal); K80.20 Calculus of gallbladder without cholecystitis without obstruction; R74.01 Elevation of levels of liver transaminase levels; Z20.822 Contact with and (suspected) exposure to COVID-19; F17.200 Nicotine dependence, unspecified, uncomplicated; R79.89 Other specified abnormal findings of blood chemistry; F41.9 Anxiety disorder, unspecified; I10 Essential (primary) hypertension; Z28.21 Immunization not carried out because of patient refusal; Z87.440 Personal history of urinary (tract) infections; Z79.899 Other long term (current) drug therapy